=== PATIENT | male | born 1975 | race Caucasian/White ===

== ENCOUNTER → 2019-07-01 09:43 | Outpatient (CLI) | payer OTHER, SELFPAY ==
[2019-07-01 10:31] VITALS: PULSE 78; PULSE 81
== END ==
PROVIDERS: PCP Emergency Medicine; Visit Provider Emergency Medicine
DX: J44.9 Chronic obstructive pulmonary disease, unspecified (principal)
CPT/HCPCS: 94060; 94640; 94726; 94729

== ENCOUNTER → 2020-05-30 15:16 | Outpatient (CLI) | payer MEDICAID, SELFPAY | PROVIDERS: Visit Provider Family Medicine | DX: L03.114 Cellulitis of left upper limb (principal); T14.8XXA Other injury of unspecified body region, initial encounter | CPT/HCPCS: 87070; 87077; 87186; 87205 ==

== ENCOUNTER 2020-08-04 18:16 | Emergency (ER) | payer MEDICAID, SELFPAY ==
[2020-08-04 18:26] VITALS: BP 125/62; PULSE 78; RESP 16; TEMP 36.6; O2SAT 98; BMI 25.0
--- NOTE | 2020-08-04 18:48 | XR_ITS ---
PROCEDURE: XR SHOULDER RT MIN 2V CLINICAL INDICATION: PAIN COMPARISON: CR SHOU3L [id number] VIEWS from 04/11/2016 CR SHOU3L [id number] VIEWS from 06/22/2016 CR SHOU3R [id number] VIEWS from 06/08/2017 FINDINGS: No acute fracture. No blastic change. There is mild prominence of the AC joint which has developed since 06/08/2017. Has the patient had interval surgery? Other findings:None. IMPRESSION: Prominence of the AC joint which could be posttraumatic or postsurgical. Otherwise negative Dictated by: Jerry Bradford MD 08/05/2020 05:30 Jerry Bradford MD in [place] 08/05/2020 05:30
--- NOTE | 2020-08-04 18:48 | XR_ITS ---
PROCEDURE: XR CLAVICLE RT CLINICAL INDICATION: PAIN COMPARISON: CR SHOU3R [id number] VIEWS from 06/08/2017 FINDINGS: There is mild prominence of the AC joint 1. Has the patient had prior surgery? No acute fracture or dislocation. IMPRESSION: Mild prominence of the AC joint otherwise negative Dictated by: Jerry Bradford MD 08/05/2020 05:29 Jerry Bradford MD in [place] 08/05/2020 05:29
[2020-08-04 18:51] VITALS: BP 120/70; PULSE 71; RESP 16; TEMP 37.2; O2SAT 99; BMI 25.0
--- NOTE | 2020-08-04 18:54 | HMH.EDUTC ---
[facility] Disposition Clinical Impression: Bursitis Qualifiers: Bursitis location: shoulder Laterality: right Qualified Code(s): M75.51 - Bursitis of right shoulder Disposition: Home, Self-Care Condition on Discharge: Good Instructions: Bursitis (Alternative Therapy), Bursitis, DI for Bursitis, Ibuprofen Additional Instructions: *RICE, Rest the extremity, Ice 15-20 minutes 3-4 times daily, Compress- wear the rigoberto wrap as discussed as much as possible to help reduce swelling and pain, Elevate the extremity when at rest *Rigoberto wrap is for support and help control swelling, use it except in the shower. Be sure that is not to tight but not to loose either *Elevate when resting *Ibuprofen as needed for pain an inflammation. If need something more can take Tylenol in between doses of Ibuprofen to help Immediately follow up with your family doctor for new or worsening of symptoms, or no noticeable improvement over the next 3-5 days Prescriptions: Ibuprofen [Ibuprofen 600mg Tablet] 600 mg PO Q6HP PRN #20 tab PRN Reason: Moderate Pain Transmission Status: Received by [facility] Referrals: Kostas Spencer APRN [Primary Care Provider] - As needed Time of Disposition: 19:11 Medical Decision Making - Keagan Inquiry Pt receiving controlled substance: No Keagan was queried for this patient: No Vital Signs: 08/04/20 18:26 08/04/20 18:51 Temperature 98 F 98.9 F Temperature Source Oral Oral Pulse Rate [Left Radial] 78 71 Respiratory Rate 16 16 Blood Pressure [Right Arm] 125/62 120/70 Blood Pressure Mean [Right Arm] 83 86 Blood Pressure Source [Right Arm] Automatic Cuff Blood Pressure Position [Right Arm] Sitting Sitting 02 Sat by Pulse Oximetry 98 99 Oxygen Delivery Method Room Air Room Air Orders (Tests/Meds): ED MEDICATIONS Discontinued Medications Generic Name Dose Route Start Last Admin Trade Name Freq PRN Reason Stop Dose Admin Methylprednisolone Sodium Succinate 125 mg 08/04/20 19:08 08/04/20 19:15 Solu-Medrol 125mg/2ml Vial IM 08/04/20 19:09 125 mg ONCE ONE Administration ORDERS Category Date Time Status Clavicle XR right [XR clavicle RT] Stat Exams 08/04/20 18:48 Taken XR shoulder RT min 2V Stat Exams 08/04/20 18:48 Taken [facility] HPI - General Stated complaint: Right Shoulder Pain Time Seen by Provider: 08/04/20 18:54 Mode of Arrival: Ambulatory Source of Information: Patient Limitations: No Limitations Description of Symptoms (Recalled from Triage Doc. 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 states limited ROM - History of Present Illness Provider Complaint: Patient states that he has been pruning bushes all day and started having pain in his right shoulder area States that hurts when he moves it or tries to lift his arm Denies known injury - Related Data Previous Rx's Medication Instructions Recorded amoxicillin 875 mg-potassium 1 tab PO BID #30 tab 05/30/20 clavulanate 125 mg tablet sulfamethoxazole 800 1 tab PO BID #30 tab 05/30/20 mg-trimethoprim 160 mg tablet Ibuprofen [Ibuprofen 600mg 600 mg PO Q6HP PRN #20 tab 08/04/20 Tablet] Allergies Allergy/AdvReac Type Severity Reaction Status Date / Time No Known Allergies Allergy Verified 05/30/20 10:36 [facility] History - Hepatitis A Screen Attestation statement:: This patient has been screened for Hepatitis A risk factors. I have reviewed the patient's past medical history: Yes Medical History: Reports:: Hepatitis Denies:: Cancer, Diabetes Mellitus Type 1, Diabetes Mellitus Type 2, MRSA Amputation: No - Social History Smoking Status: Current every day smoker Tobacco Type: cigarettes # Packs/Day (cigarettes): 1 #Yrs smoked (if former smoker): 20 Alcohol Intake: never Alcohol Intake Frequency:: other Substance Use Type: heroin Occupational Status: other Family Hx:: Cancer, Coronary Artery Disease, Heart Attack Comm
[2020-08-04 19:22] VITALS: BP 120/70; PULSE 71; RESP 16; TEMP 37.2; O2SAT 99
== END 2020-08-04 19:36 | disposition home or self-care (01) ==
PROVIDERS: Emergency Provider Nurse Practitioner; PCP Nurse Practitioner Family
DX: M75.51 Bursitis of right shoulder (principal); F17.210 Nicotine dependence, cigarettes, uncomplicated
CPT/HCPCS: 73000; 73030; 96372; 99202; 99203

== ENCOUNTER 2020-08-07 19:08 | Emergency (ER) | payer MEDICAID, SELFPAY ==
[2020-08-07 19:18] VITALS: BP 157/90; PULSE 92; RESP 16; O2SAT 97; BMI 25.0
--- NOTE | 2020-08-07 19:34 | HMH.EDUPEXT ---
ED Disposition Clinical Impression: Strain of AC joint Qualifiers: Encounter type: subsequent encounter Laterality: right Qualified Code(s): S46.911D - Strain of unspecified muscle, fascia and tendon at shoulder and upper arm level, right arm, subsequent encounter Disposition: Home, Self-Care Condition on Discharge: Fair Prescriptions: Cyclobenzaprine HCl [Cyclobenzaprine 5mg Tab] 5 mg PO Q8HP PRN #30 tab PRN Reason: pain/spasm Transmission Status: Pending to [facility] Ketorolac Tromethamine [Toradol 10mg tablet] 10 mg PO Q6H 5 Days #20 tab Transmission Status: Pending to [facility] Referrals: Kostas Spencer APRN [Primary Care Provider] - - Critical Care Critical Care Time: No Attestation: On 08/07/20, the high probability of a clinically significant, sudden or life threatening deterioration of the following system(s) required my full and direct attention, intervention and personal management. The time I documented below is in addition to time spent performing reported procedures but includes the following listed in this critical care notation. Medical Decision Making - Medical Records Medical records reviewed: Yes: I reviewed the patient's medical records. - Keagan Inquiry Pt receiving controlled substance: No Vital Signs: 08/07/20 19:18 Pulse Rate [Left Brachial] 92 H Respiratory Rate 16 Blood Pressure [Left Arm] 157/90 H Blood Pressure Mean [Left Arm] 112 Blood Pressure Source [Left Arm] Automatic Cuff Blood Pressure Position [Left Arm] Sitting 02 Sat by Pulse Oximetry 97 Oxygen Delivery Method Room Air Upper Extremity HPI - General Chief Complaint: Extremity Injury, Upper Stated Complaint: right shoulder pain Time Seen by Provider: 08/07/20 19:30 Mode of Arrival: Ambulatory Limitations: No Limitations Description of Symptoms (Recalled from ER Triage Doc. by RN): Patient reports he injuried his right shoulder at work and was seen in the [facility] two days ago and diagnosed with veracity. Patient was given a steroid shot and ibprofen 600 but patient reports the pain has worsened. - History of Present Illness HPI narrative: This is a 45-year-old male who presents with right shoulder pain x2 days. Patient had recently injured his shoulder and was seen in urgent treatment center for which he had x-rays and diagnosed with bursitis. Patient was treated with corticosteroids. Patient reports continued sharp constant pain worse with movement of the shoulder. Patient reports pain is moderate intensity. - Related Data Previous Rx's Medication Instructions Recorded amoxicillin 875 mg-potassium 1 tab PO BID #30 tab 05/30/20 clavulanate 125 mg tablet sulfamethoxazole 800 1 tab PO BID #30 tab 05/30/20 mg-trimethoprim 160 mg tablet Ibuprofen [Ibuprofen 600mg 600 mg PO Q6HP PRN #20 tab 08/04/20 Tablet] Cyclobenzaprine HCl 5 mg PO Q8HP PRN #30 tab 08/07/20 [Cyclobenzaprine 5mg Tab] Ketorolac Tromethamine [Toradol 10 mg PO Q6H 5 Days #20 tab 08/07/20 10mg tablet] Allergies Allergy/AdvReac Type Severity Reaction Status Date / Time No Known Allergies Allergy Verified 05/30/20 10:36 [facility] History - Hepatitis A Screen Drug use history?: No High risk sexual behaviors?: No History of sexually transmitted infection?: No Currently employed?: No Childcare worker?: No Do you have indoor plumbing?: Yes Do you have electricity?: Yes Attestation statement:: This patient has been screened for Hepatitis A risk factors. I have reviewed the patient's past medical history: Yes Medical History: Reports:: Hepatitis Denies:: Cancer, Diabetes Mellitus Type 1, Diabetes Mellitus Type 2, MRSA Amputation: No - Social History Smoking Status: Current every day smoker Tobacco Type: cigarettes # Packs/Day (cigarettes): 1 #Yrs smoked (if former smoker): 20 Alcohol Intake: never Alcohol Intake Frequency:: other Substance Use Type: heroin Occupatio
[2020-08-07 19:44] VITALS: BP 135/76; PULSE 86; RESP 16; TEMP 36.4; O2SAT 98
== END 2020-08-07 19:55 | disposition home or self-care (01) ==
PROVIDERS: Emergency Provider Emergency Medicine; PCP Nurse Practitioner Family
DX: S46.911A Strain of unspecified muscle, fascia and tendon at shoulder and upper arm level, right arm, initial encounter (principal); F17.210 Nicotine dependence, cigarettes, uncomplicated
CPT/HCPCS: 96372; 99281

== ENCOUNTER → 2023-06-14 23:12 | Outpatient (CLI) | payer MEDICAID, SELFPAY ==
[2023-06-14 18:13] LABS: Basophils % 0.2 % (0.1-2.0); Eosinophils # 0.1 K/mm3 (0.0-0.4); Eosinophils % 1.3 % (0.1-12.0); Hematocrit 47.6 % (42.0-52.0); Hemoglobin 15.3 g/dL (14.1-18.0); Lymphocytes # 2.3 K/mm3 (0.7-4.5); Lymphocytes % 24.3 % (10-50); Mean Corpuscular HGB Conc 32.1 g/dL (31.8-35.4); Mean Corpuscular Hemoglobin 28.7 pg (27.0-31.2); Mean Corpuscular Volume 89.3 fl (80-94); Mean Platelet Volume 9.5 fl (7.4-10.4); Monocytes # 0.6 K/mm3 (0.1-1.0); Monocytes % 6.2 % (1.7-9.3); Neutrophils # 6.5 K/mm3 (1.8-7.8); Platelet Count 253 K/mm3 (142-424); Red Blood Count 5.32 M/mm3 (4.60-6.20); Red Cell Distribution Width 13.8 % (11.5-17.5); White Blood Count 9.5 K/mm3 (4.8-10.8)
[2023-06-14 18:19] LABS: Alanine Aminotransferase 19 U/L (12-78); Albumin Level 4.5 g/dl (3.5-5.0); Albumin/Globulin Ratio 1.5 (1.1-1.8); Alkaline Phosphatase 80 U/L (38-126); Anion Gap 11.9 mEq/L (5-15); Aspartate Amino Transferase 28 U/L (17-59); Bilirubin,Total 0.2 mg/dl (0.2-1.3); Blood Urea Nitrogen 14 mg/dl (9-20); Calcium 9.3 mg/dl (8.4-10.2); Carbon Dioxide 24 mmol/L (22.0-30.0); Chloride 109 mmol/L (98-107); Chol/HDL Ratio 7.4 (1-3.5); Cholesterol 207 mg/dl (140-200); Estimated Glomerular Filt Rate 90 ml/min (>60); GFR (African American) 109 ML/MIN (>60); Glucose 108 mg/dl (74-100); HDL Cholesterol 28 mg/dl (40-60); Potassium 3.9 mmoL/L (3.5-5.1); Sodium 141 mmol/L (136-145); Total Protein,Serum 7.5 g/dl (6.3-8.2); Triglycerides 212 mg/dl (30-150); VLDL Cholesterol 42 mg/dL (0-40)
[2023-06-14 18:37] LABS: 25-OH Vitamin D, Total 37.8 ng/mL (30-100); T4 (Thyroxine) 5.9 ug/dl (5.53-11.0)
== END ==
PROVIDERS: PCP Nurse Practitioner Family; Visit Provider Nurse Practitioner Family
DX: E87.6 Hypokalemia (principal); F41.9 Anxiety disorder, unspecified; F32.A Depression, unspecified; F33.1 Major depressive disorder, recurrent, moderate; I10 Essential (primary) hypertension; E66.9 Obesity, unspecified; Z68.33 Body mass index [BMI] 33.0-33.9, adult
CPT/HCPCS: 80053; 80061; 82306; 84436; 84443; 85025

== ENCOUNTER → 2023-09-10 23:34 | Outpatient (CLI) | payer MEDICAID, SELFPAY ==
[2023-09-10 19:03] LABS: Coronavirus 19, PCR Not Detected (NotDetected); Influenza A, PCR Not Detected (NotDetected); Influenza B, PCR Not Detected (NotDetected)
== END ==
PROVIDERS: PCP Nurse Practitioner Family; Visit Provider Internal Medicine
DX: R06.02 Shortness of breath (principal)
CPT/HCPCS: 87636

== ENCOUNTER → 2023-09-11 14:05 | Outpatient (CLI) | payer MEDICAID, SELFPAY ==
[2023-09-11 14:33] LABS: Basophils % 0.2 % (0.1-2.0); Eosinophils # 0.6 K/mm3 (0.0-0.4); Eosinophils % 5.9 % (0.1-12.0); Hematocrit 45.1 % (42.0-52.0); Hemoglobin 15.7 g/dL (14.1-18.0); Lymphocytes % 20.2 % (10-50); Mean Corpuscular HGB Conc 34.9 g/dL (31.8-35.4); Mean Corpuscular Hemoglobin 30.3 pg (27.0-31.2); Mean Platelet Volume 8.4 fl (7.4-10.4); Monocytes # 0.6 K/mm3 (0.1-1.0); Monocytes % 6.4 % (1.7-9.3); Neutrophils # 6.5 K/mm3 (1.8-7.8); Neutrophils % 67.3 % (37.0-80.0); Platelet Count 234 K/mm3 (142-424); Red Blood Count 5.19 M/mm3 (4.60-6.20); Red Cell Distribution Width 14.1 % (11.5-17.5); White Blood Count 9.6 K/mm3 (4.8-10.8)
[2023-09-11 15:24] LABS: Alanine Aminotransferase 19 U/L (12-78); Albumin Level 3.7 g/dl (3.5-5.0); Albumin/Globulin Ratio 1.2 (1.1-1.8); Alkaline Phosphatase 64 U/L (38-126); Anion Gap 12.5 mEq/L (5-15); Aspartate Amino Transferase 30 U/L (17-59); Bilirubin,Total 0.3 mg/dl (0.2-1.3); Blood Urea Nitrogen 12 mg/dl (9-20); Calcium 8.7 mg/dl (8.4-10.2); Carbon Dioxide 24 mmol/L (22.0-30.0); Chloride 104 mmol/L (98-107); Estimated Glomerular Filt Rate 143 ml/min (>60); GFR (African American) 173 ML/MIN (>60); Globulin 3.2 g/dL (1.3-3.2); Glucose 72 mg/dl (74-100); Potassium 4.5 mmoL/L (3.5-5.1); Sodium 136 mmol/L (136-145); Total Protein,Serum 6.9 g/dl (6.3-8.2)
[2023-09-11 15:39] LABS: 25-OH Vitamin D, Total 49.7 ng/mL (30-100)
[2023-09-11 15:54] LABS: Thyroid Stimulating Hormone 1.37 uIU/mL (0.465-4.68)
== END ==
PROVIDERS: PCP Emergency Medicine; Visit Provider Internal Medicine
DX: E87.6 Hypokalemia (principal); Z68.30 Body mass index [BMI] 30.0-30.9, adult
CPT/HCPCS: 36415; 80053; 82306; 84443; 85025

== ENCOUNTER → 2023-10-07 10:55 | Outpatient (CLI) | payer MEDICAID, SELFPAY | PROVIDERS: PCP Internal Medicine; Visit Provider Internal Medicine | DX: R06.02 Shortness of breath (principal) | CPT/HCPCS: 87635 ==

== ENCOUNTER 2023-10-21 16:32 | Emergency (ER) | payer MEDICAID, SELFPAY ==
--- NOTE | 2023-10-21 17:11 | XR_ITS ---
PROCEDURE INFORMATION: Exam: XR Left Knee Exam date and time: 10/21/2023 5:39 PM Age: 48 years old Clinical indication: Pain; Knee; Left; Additional info: Hurt it TECHNIQUE: Imaging protocol: Radiologic exam of the left knee. Views: 3 views. COMPARISON: No relevant prior studies available. FINDINGS: Bones/joints: Normal. No fracture evident Soft tissues: Normal. IMPRESSION: No acute findings.
[2023-10-21 17:50] VITALS: BP 179/94; PULSE 77; RESP 18; TEMP 36.7; O2SAT 98; BMI 28.3
--- NOTE | 2023-10-21 17:53 | EXP.UTC ---
Discharge Plan Disposition Patient Disposition: Home, Self-Care Condition: Good Prescriptions Prescriptions: New methylprednisolone 4 mg Tablets,Dose Pack 4 mg PO DIRECTED Qty: 21 0RF No Action hydroxyzine pamoate 25 mg capsule 25 mg PO HS Qty: 60 1RF lisinopril 5 mg tablet 5 mg PO DAILY Qty: 30 1RF trazodone 150 mg tablet 150 mg PO HS PRN (Reason: insomnia) Qty: 30 1RF desvenlafaxine succinate 100 mg tablet extended release 24 hr 100 mg PO DAILY atorvastatin 10 mg tablet 10 mg PO DAILY 30 Days Qty: 30 2RF metronidazole [Flagyl] 375 mg capsule 375 mg PO Q8H Qty: 30 0RF Referrals Follow up/Referrals: Sathish Wade DO [Primary Care Provider] - See instructions Activity Restrictions/Add. Instructions Additional Instructions/Restrictions: Rest the extremity, Wear the nury wrap for compression, Elevate the extremity as tolerated while you are resting. Take the medication as directed. Follow up with Dr. Negro (orthopedics) if you continue to have symptoms. I put in a referral but you need to call his office and schedule an appointment. His office phone number will be on this paperwork. Follow up with your regular doctor. GO TO THE ER FOR ANY WORSENING SYMPTOMS Clinical Impressions Clinical Impression: Left knee pain, Bursitis of left knee Stand Alone Forms Stand Alone Forms: Work/School Release Instructions Patient Instructions: DI for Bursitis, DI for Knee Pain, How to Apply an Elastic Wrap on Knee Discharge ED Provider: [facility] General Stated complaint: LT knee pain Time Seen by Provider: 10/21/23 17:52 History of Present Illness Provider Complaint: He states that he has had left knee pain for the past approx 2 weeks. He denies any known injury. He denies any other joint pain. He states that walking and bearing weight on the affected leg makes his knee pain worse. Related Data Home Medications Medication Instructions Recorded Confirmed desvenlafaxine succinate 100 mg 100 mg PO DAILY 10/07/23 tablet,extended release 24 hr Previous Rx's Medication Instructions Recorded hydroxyzine pamoate 25 mg capsule 25 mg PO HS #60 caps 06/14/23 lisinopril 5 mg tablet 5 mg PO DAILY #30 tabs 06/14/23 trazodone 150 mg tablet 150 mg PO HS PRN insomnia #30 tabs 07/21/23 metronidazole 375 mg capsule 375 mg PO Q8H #30 caps 10/03/23 (Flagyl) atorvastatin 10 mg tablet 10 mg PO DAILY 30 days #30 tabs 10/08/23 methylprednisolone 4 mg tablets in 4 mg PO DIRECTED #21 tabs 10/21/23 a dose pack Allergies Allergy/AdvReac Type Severity Reaction Status Date / Time No Known Allergies Allergy Verified 10/21/23 18:14 [facility] Disclaimer: The information contained in this section may have been updated after the patient was seen, as this information can be updated by other users. Medical History Bilateral pleural effusion Bursitis Encounter for medical clearance for patient hold Hypokalemia Strain of AC joint Syncope and collapse Social History Smoking Status: Current every day smoker tobacco type: cigarettes packs per day: 1 alcohol intake: never substance use type: heroin current occupational status: other Travel in the last 8 weeks: None ROS Obtained: Yes All systems reviewed & no additional complaints except as documented Constitutional Constitutional: Denies chills and Denies fever(s) Eyes Eyes: Denies eye discharge ENT Ears, Nose, Mouth, and Throat: Denies dizziness, Denies otalgia and Denies sore throat Cardiovascular Cardiovascular: Denies chest pain Respiratory Respiratory: Denies shortness of breath, Denies chest congestion, Denies cough, Denies stridor and Denies wheezing Gastrointestinal Gastrointestingal: Denies nausea or vomiting Musculoskeletal Musculoskeletal: Reports as per HPI and Reports a
[2023-10-21 18:18] VITALS: BP 179/94; PULSE 77; RESP 18; TEMP 36.7; O2SAT 98
== END 2023-10-21 18:18 | disposition home or self-care (01) ==
PROVIDERS: Emergency Provider Nurse Practitioner Family; PCP Internal Medicine
DX: M70.52 Other bursitis of knee, left knee (principal); M25.562 Pain in left knee; F17.210 Nicotine dependence, cigarettes, uncomplicated
CPT/HCPCS: 73562; 99204; 99212; G0463

== ENCOUNTER 2025-02-09 13:55 | Outpatient (CLI) | payer MEDICAID, SELFPAY ==
[2025-02-09 21:33] LABS: Alanine Aminotransferase 37 U/L (12-78); Albumin Level 3.8 g/dl (3.5-5.0); Albumin/Globulin Ratio 1.3 (1.1-1.8); Alkaline Phosphatase 67 U/L (38-126); Anion Gap 8.9 mEq/L (5-15); Aspartate Amino Transferase 39 U/L (17-59); Bilirubin,Total 0.7 mg/dl (0.2-1.3); Blood Urea Nitrogen 8 mg/dl (9-20); Calcium 9.1 mg/dl (8.4-10.2); Carbon Dioxide 28 mmol/L (22.0-30.0); Chloride 102 mmol/L (98-107); Chol/HDL Ratio 5.1 (1-3.5); Cholesterol 174 mg/dl (140-200); Estimated Glomerular Filt Rate 119 ml/min (>60); GFR (African American) 144 ML/MIN (>60); Globulin 2.9 g/dL (1.3-3.2); Glucose 123 mg/dl (74-100); HDL Cholesterol 34 mg/dl (40-60); Potassium 3.9 mmoL/L (3.5-5.1); Sodium 135 mmol/L (136-145); Total Protein,Serum 6.7 g/dl (6.3-8.2); Triglycerides 172 mg/dl (30-150); VLDL Cholesterol 34 mg/dL (0-40)
[2025-02-09 21:44] LABS: Direct LDL Cholesterol 99.02 mg/dL (100-129)
[2025-02-09 22:05] LABS: Prostate Specific Ag Screen 0.9 ng/ml (0.0-4.0)
== END 2025-02-09 23:59 | disposition home or self-care (01) ==
LOC: LAB.DROPOF 02-10 09:27
PROVIDERS: PCP Family Medicine; Visit Provider Family Medicine
DX: R39.198 Other difficulties with micturition (principal)
CPT/HCPCS: 80053; 80061; G0103